=== PATIENT | female | born 1970 | race Caucasian/White ===

== ENCOUNTER 2016-04-23 08:37 | Emergency (ER) | payer SELFPAY ==
[~2016-04-23] VITALS: Ht 160 cm; Wt 58.1 kg
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
--- NOTE | 2016-04-23 09:25 | Diagnostic Imaging Report ---
INDICATION: Injury with pain. FINDINGS: There is no fracture, dislocation, or acute articular incongruity. The elbow and wrist reveal no dislocation. The ulnar styloid is intact, this reportedly the site of greatest pain. IMPRESSION: Unremarkable right forearm radiographs. Dictated by: Dictated on workstation # [id number]
--- NOTE | 2016-04-23 09:26 | Diagnostic Imaging Report ---
INDICATION: Injury with pain, symptoms greatest at the ulnar styloid. FINDINGS: The ulnar styloid is intact. The distal radius, ulna, carpus, metacarpals, and phalanges unremarkable. Arthritic changes greatest at the DIP of the fifth finger. No fracture. IMPRESSION: No acute-appearing abnormality. Dictated by: Dictated on workstation # [id number]
[2016-04-23] MEDS ORDERED: NAPR500T3 PO (09:35)
[2016-04-23 09:47] VITALS: BP 129/88
== END 2016-04-23 09:47 | disposition home or self-care (01) ==
LOC: ER 08:41
DX: S66.911A Strain of unspecified muscle, fascia and tendon at wrist and hand level, right hand, initial encounter (principal); W22.8XXA Striking against or struck by other objects, initial encounter; Y99.8 Other external cause status
CPT/HCPCS: 73090; 73130

== ENCOUNTER 2017-04-06 11:14 | Emergency (ER) | payer SELFPAY ==
[~2017-04-06] VITALS: Ht 162.6 cm; Wt 58.1 kg
[~2017-04-06 11:14] MED LIST: NAPR500T4 PO
--- OUTSIDE RECORDS SUMMARY | 2017-04-06 11:20 | XMS REPORT ---
Author Author JOHN TRAYLOR [facility] Address [address] [place] [address] Care Team Providers Care Associate Merchant Name Role Phone JOHN TRAYLOR Unavailable PROBLEMS Type Condition ICD9-CM Code FAC59-TC Code Onset Dates Condition Status SNOMED Code Problem Arthritis M19.90 Active 8279459 Problem Screening breast examination Z12.39 Active 079523999 Problem Screening examination for venereal disease V74.5 Active 597350154 Problem Routine gynecological examination Z01.419 Active 053728926 Problem High risk sexual behavior Z72.51 Active 640348564 ALLERGIES Substance Reaction Event Type Date Status Aspirin Unknown Drug Allergy Apr, Active SOCIAL HISTORY No smoking Hx information available PLAN OF CARE Activity Details Follow Up prn Reason: VITAL SIGNS Height 64 in 2016-05-01 Weight 132.8 lbs 2016-05-01 Temperature 98.3 degrees Fahrenheit 2016-05-01 Heart Rate 96 bpm 2016-05-01 Respiratory Rate 18 2016-05-01 BMI 22.79 kg/m2 2016-05-01 Blood pressure systolic 100 mmHg 2016-05-01 Blood pressure diastolic 70 mmHg 2016-05-01 MEDICATIONS Medication Instructions Dosage Frequency Start Date End Date Duration Status Naprosyn 500 MG Orally bid pc 1 Apr, Active RESULTS No Results PROCEDURES Procedure Date Ordered Related Diagnosis Body Site Office Visit, Est Pt., Level 2 May 01, 2016 IMMUNIZATIONS No Known Immunizations
[2017-04-06] MEDS ORDERED: HYDROcodone/APAP 5 MG/325 MG (LORTAB) TAB PO STA (11:29)
[2017-04-06] MEDS ORDERED: TETANUS,DIPTH,PERTUSS P/F (BOOSTRIX) 0.5 ML VIAL IM ONE (11:42)
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
--- NOTE | 2017-04-06 11:48 | Diagnostic Imaging Report ---
INDICATION: Forearm pain after injury. COMPARISON: None available. FINDINGS: There is an acute nondisplaced hairline fracture of the distal ulnar diaphysis. This is located approximately 3 cm from the ulnar styloid. No malalignment of the distal radioulnar joint or elbow. IMPRESSION: Acute nondisplaced hairline fracture of the distal ulnar diaphysis. Dictated by: Dictated on workstation # [id number]
[2017-04-06] MEDS ORDERED: HYDR-3812 PO (11:55)
[2017-04-06 12:05] VITALS: BP 116/93
== END 2017-04-06 12:05 | disposition home or self-care (01) ==
LOC: EDUNIT# 11:14 → ER 11:16
DX: S59.002A Unspecified physeal fracture of lower end of ulna, left arm, initial encounter for closed fracture (principal); F17.210 Nicotine dependence, cigarettes, uncomplicated; Z23 Encounter for immunization; W20.8XXA Other cause of strike by thrown, projected or falling object, initial encounter; W18.40XA Slipping, tripping and stumbling without falling, unspecified, initial encounter
CPT/HCPCS: 73090; 90715; 99284

== ENCOUNTER 2018-09-12 02:58 | Emergency (ER) | payer SELFPAY ==
[~2018-09-12] VITALS: Ht 162.6 cm; Wt 58.1 kg
[~2018-09-12 02:58] MED LIST changes: +ACHD5005 PO; +NAPR-915 PO; -NAPR500T4 PO
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
[2018-09-12] MEDS ORDERED: RX-TRAMADOL 50 MG (ULTRAM) TAB PPK#4 PO STA (04:13)
[2018-09-12 04:18] VITALS: BP 116/89
[2018-09-12 04:22] LABS: AMPHETAMINE SCREEN, URINE POSITIVE (NEGATIVE); BARBITURATE SCREEN URINE NEGATIVE (NEGATIVE); BENZODIAZEPINES SCREEN URINE NEGATIVE (NEGATIVE); CANNABINOID SCREEN, URINE POSITIVE (NEGATIVE); COCAINE SCREEN URINE NEGATIVE (NEGATIVE); METHADONE STAT NEGATIVE (NEGATIVE); METHAMPHETAMINE SCREEN URINE S NEGATIVE (NEGATIVE); OPIATE SCREEN URINE NEGATIVE (NEGATIVE); OXYCODONE STAT NEGATIVE (NEGATIVE); PROPOXYPHENE STAT NEGATIVE (NEGATIVE); TRICYCLIC ANTIDEPRESSANTS SCRE NEGATIVE (NEGATIVE)
[2018-09-12] MEDS ORDERED: TRAM-42 PO (04:23)
--- NOTE | 2018-09-12 05:56 | Diagnostic Imaging Report ---
INDICATION: Fall. Wrist pain. COMPARISON: 04/06/2017 FINDINGS: 3 radiographic views of the left hand were obtained. There is acute transverse oriented fracture involving the distal radius. There is no significant displacement of fracture fragments. There is no intra-articular extension. Note is also made of age-indeterminate ulnar styloid fracture. There is chronic appearing deformity of the distal ulna as well consistent with old healed fracture. Note is made, however but there is some irregular lucency associated with the deformity of the distal ulna suggestive of potential acute on chronic fracture. Note is also made of surrounding soft tissue swelling. Joint spaces are maintained. No unexpected radiopaque foreign bodies are seen. IMPRESSION: 1. Acute fracture of the distal left radius as described above. 2. Age-indeterminate ulnar styloid fracture. 3. Old fracture of the distal ulnar shaft. Again, there is some subtle lucency associated with the chronic appearing deformity suggestive of potential acute on chronic injury. If further evaluation is indicated, cross-sectional imaging is recommended. Dictated by: Dictated on workstation # [id number]
--- NOTE | 2018-09-12 05:59 | Diagnostic Imaging Report ---
INDICATION: Fall status post injury. COMPARISON: 04/06/2017 FINDINGS: 3 radiographic views of the left radius were obtained. There is acute transverse oriented right fracture involving the distal left radius in the region of the metadiaphyseal junction. There is no significant displacement of fracture fragments. There is no intra-articular extension. Note is also made of age-indeterminate ulnar styloid fracture. There is also gross chronic appearing deformity of the distal ulnar shaft. Note is made, however of subtle lucency within the chronic appearing deformity suggestive of potential acute on chronic injury. Joint spaces are maintained. No unexpected radiopaque foreign bodies are seen. IMPRESSION: 1. Acute fracture of the distal left radius as described above. 2. Age-indeterminate ulnar styloid fracture. 3. Chronic appearing deformity of distal ulna consistent with previous healed fracture. Again, however, there is some subtle lucency within this area suggestive of potential acute on chronic injury. If further evaluation is indicated, cross-sectional CT or MRI is recommended. Dictated by: Dictated on workstation # [id number]
== END 2018-09-12 04:25 | disposition home or self-care (01) ==
LOC: EDUNIT# 02:58 → ER 03:00
DX: S59.202A Unspecified physeal fracture of lower end of radius, left arm, initial encounter for closed fracture (principal); F10.129 Alcohol abuse with intoxication, unspecified; F19.10 Other psychoactive substance abuse, uncomplicated; F15.10 Other stimulant abuse, uncomplicated; F17.210 Nicotine dependence, cigarettes, uncomplicated; W18.30XA Fall on same level, unspecified, initial encounter
CPT/HCPCS: 73110; 73130; 80306; 84703

== ENCOUNTER 2018-12-25 23:07 | Emergency (ER) | payer SELFPAY ==
[~2018-12-25] VITALS: Ht 162.6 cm; Wt 58.1 kg
[~2018-12-25 23:07] MED LIST changes: +TRAM-42 PO
--- NOTE | 2018-12-25 23:07 | NUR ---
PATIENT ARRIVES TO ROOM VIA EMS FOR A DOG BITE. IV ESTABLISHED BY EMS, FLUIDS INFUSING PATIENT IS a&o X 4. 2315- CLEANING AND IRRIGATION OF WOUNDS DONE AT THIS TIME. RIGHT ANTERIOR AND POSTERIOR THIGH AND LEFT THUMB. COVERED WITH MOIST DRESSING AND VISCOUS LIDOCAINE 0045- MORE IRRIGATION AND CLEANING DONE WELL SOAKING LEFT THUMB IN CLEANING SOLUTION AND SALINE. DR VILLEGAS IN ROOM IRRIGATING AND ADMINISTERING RABIES VACCINATIONS AT SITES OF BITES. LEFT THUMB, AND ANTERIOR AND POSTERIOR RIGHT THIGH. 0050- DIPTI RIGHT ANTERIOR/INNER THIGH 6CM AND 8 DIPTI. 0055- DIPTI RIGHT POSTERIOR THIGH 4CM AND 5 DIPTI. 0100-BACTROBAN APPLIED TO WOUNDS AND COVERED WITH BESS AND WRAPPED IN KERLEX.
[2018-12-25] MEDS ORDERED: PIPERACILLIN SODIUM/TAZOBACTAM 4.5 GM in NS (IVPB) 100 ML IV ONE (23:15)
[2018-12-25] MEDS ORDERED: LACTATED RINGERS 1,000 ML IV ONE (23:17)
[2018-12-25] MEDS ORDERED: KETOROLAC 30 MG/ML VIAL IVP STA (23:17)
[2018-12-25 23:30] LABS: BASOPHILS % (AUTO) 0 % (0-10); EOSINOPHILS # (AUTO) 0.3 10^3/uL (0.0-0.3); EOSINOPHILS % (AUTO) 4 % (0-10); HEMATOCRIT 36 % (35-52); HEMOGLOBIN 12.3 G/DL (11.5-16.0); LYMPHOCYTES # (AUTO) 2.6 X 10^3 (1.0-4.0); LYMPHOCYTES % (AUTO) 31 % (12-44); MEAN CORPUSCULAR HEMOGLOBIN 31 PG (25-34); MEAN CORPUSCULAR HGB CONC 34 G/DL (32-36); MEAN CORPUSCULAR VOLUME 92 FL (80-99); MEAN PLATELET VOLUME 9.3 FL (7.4-10.4); MONOCYTES # (AUTO) 0.7 X 10^3 (0.0-1.0); MONOCYTES % (AUTO) 8 % (0-12); NEUTROPHILS # (AUTO) 4.8 X 10^3 (1.8-7.8); NEUTROPHILS % (AUTO) 57 % (42-75); PLATELET COUNT 301 10^3/uL (130-400); RED CELL DISTRIBUTION WIDTH 13.2 % (10.0-14.5); WHITE BLOOD COUNT 8.5 10^3/uL (4.3-11.0)
[2018-12-25] MEDS ORDERED: MUPIROCIN 2% OINT 22 GM (BACTROBAN) TUBE TOP SCH (23:30)
[2018-12-25] MEDS ORDERED: RABIES VACCINE HUMAN DIPL CELL 1 ML/2.5 UNITS SYR IM ONE (23:30)
[2018-12-25] MEDS ORDERED: LIDOCAINE/EPI 2% 1:100,00 (XYLOCAINE) 20 ML VIAL INJ ONE (23:30)
[2018-12-25] MEDS ORDERED: LIDOCAINE 2% VISCOUS 15 ML UDC MM ONE ×2 (23:30)
[2018-12-25] MEDS ORDERED: RABIES IMMUNE GLOBULIN 300 UNIT/ML 5 ML (HyperRAB) IM ONE (23:30)
[2018-12-25 23:49] LABS: ALANINE AMINOTRANSFERASE 15 U/L (0-55); ALBUMIN 3.8 GM/DL (3.2-4.5); ALKALINE PHOSPHATASE 96 U/L (40-136); BILIRUBIN,TOTAL 0.3 MG/DL (0.1-1.0); BUN/CREATININE RATIO 22; CALCIUM 8.9 MG/DL (8.5-10.1); CARBON DIOXIDE 22 MMOL/L (21-32); CHLORIDE 109 MMOL/L (98-107); CREATININE SERUM 0.68 MG/DL (0.60-1.30); GFR ESTIMATED > 60; GLUCOSE 115 MG/DL (70-105); POTASSIUM 3.8 MMOL/L (3.6-5.0); SODIUM 141 MMOL/L (135-145); TOTAL PROTEIN 6.6 GM/DL (6.4-8.2)
[2018-12-26] MEDS: LIDOCAINE/EPI 2% 1:100,00 (XYLOCAINE) 20 ML VIAL INJ ONE (00:01)
[2018-12-26 00:36] LABS: AMPHETAMINE SCREEN, URINE POSITIVE (NEGATIVE); BARBITURATE SCREEN URINE NEGATIVE (NEGATIVE); BENZODIAZEPINES SCREEN URINE NEGATIVE (NEGATIVE); CANNABINOID SCREEN, URINE POSITIVE (NEGATIVE); COCAINE SCREEN URINE NEGATIVE (NEGATIVE); METHADONE STAT NEGATIVE (NEGATIVE); METHAMPHETAMINE SCREEN URINE S POSITIVE (NEGATIVE); OPIATE SCREEN URINE NEGATIVE (NEGATIVE); OXYCODONE STAT NEGATIVE (NEGATIVE); PROPOXYPHENE STAT NEGATIVE (NEGATIVE); TRICYCLIC ANTIDEPRESSANTS SCRE NEGATIVE (NEGATIVE)
[2018-12-26] MEDS ORDERED: TRAM50TA2 PO (01:18)
[2018-12-26] MEDS ORDERED: AMOX-358 PO (01:18)
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
[2018-12-26] MEDS ORDERED: RX-TRAMADOL 50 MG (ULTRAM) TAB PPK#4 PO STA (01:23)
[2018-12-26 01:30] VITALS: BP 135/89
[2018-12-26] MEDS ORDERED: AUGMENTIN 875 MG TAB (AMOXICILLIN/CLAVULANATE) PO SCH (01:30)
--- NOTE | 2018-12-26 07:05 | Diagnostic Imaging Report ---
EXAM: FEMUR, RIGHT, 2 VIEWS INDICATION: Bug bite. COMPARISON: None. FINDINGS: No fracture or malalignment. No suspicious osteoblastic or lytic lesions. No radiopaque foreign bodies. Soft tissue gas about the distal right femoral metaphysis. IMPRESSION: Soft tissue wound along the distal right femoral metaphysis. No acute osseous findings. No radiopaque foreign bodies. Dictated by: Dictated on workstation # [id number]
--- NOTE | 2018-12-26 07:12 | Diagnostic Imaging Report ---
EXAM: FINGER(S) INDICATION: Dogbite. COMPARISON: Left hand radiographs 09/12/2018. 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 Chronic left distal radius fracture with dorsal angulation. Chronic left ulnar styloid fracture. IMPRESSION: 1. 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 No radiopaque foreign bodies. 2. Chronic fractures of the left radius and ulna. There is dorsal angulation of the left radius fracture. Dictated by: Dictated on workstation # [id number]
== END 2018-12-26 01:41 | disposition home or self-care (01) ==
LOC: EDUNIT# 23:07 → ER 23:08
DX: S62.522B Displaced fracture of distal phalanx of left thumb, initial encounter for open fracture (principal); S71.151A Open bite, right thigh, initial encounter; F15.99 Other stimulant use, unspecified with unspecified stimulant-induced disorder; F12.99 Cannabis use, unspecified with unspecified cannabis-induced disorder; F41.9 Anxiety disorder, unspecified; F17.210 Nicotine dependence, cigarettes, uncomplicated; Z90.89 Acquired absence of other organs; W54.0XXA Bitten by dog, initial encounter
CPT/HCPCS: 12032; 12042; 36415; 73140; 73552; 80053; 80306; 80320; 84703; 85025; 90375; 90675; 96365; 96372; 96375

== ENCOUNTER 2018-12-27 13:30 | Emergency (ER) | payer SELFPAY ==
[~2018-12-27] VITALS: Ht 162.6 cm; Wt 56.7 kg
[~2018-12-27 13:30] MED LIST changes: +AMOX-358 PO; +TRAM50TA2 PO
[2018-12-27] MEDS ORDERED: PIPERACILLIN SODIUM/TAZOBACTAM 4.5 GM in NS (IVPB) 100 ML IV ONE (14:00)
[2018-12-27] MEDS ORDERED: VANCOMYCIN INJECTION 1,000 MG in NS (IVPB) 250 ML IV ONE (14:00)
[2018-12-27 14:23] LABS: BASOPHILS % (AUTO) 0 % (0-10); EOSINOPHILS # (AUTO) 0.1 10^3/uL (0.0-0.3); EOSINOPHILS % (AUTO) 1 % (0-10); HEMATOCRIT 35 % (35-52); HEMOGLOBIN 11.7 G/DL (11.5-16.0); LYMPHOCYTES # (AUTO) 1.3 X 10^3 (1.0-4.0); LYMPHOCYTES % (AUTO) 14 % (12-44); MEAN CORPUSCULAR HEMOGLOBIN 32 PG (25-34); MEAN CORPUSCULAR HGB CONC 34 G/DL (32-36); MEAN CORPUSCULAR VOLUME 94 FL (80-99); MEAN PLATELET VOLUME 9.5 FL (7.4-10.4); MONOCYTES # (AUTO) 0.7 X 10^3 (0.0-1.0); MONOCYTES % (AUTO) 8 % (0-12); NEUTROPHILS # (AUTO) 7.3 X 10^3 (1.8-7.8); NEUTROPHILS % (AUTO) 77 % (42-75); PLATELET COUNT 229 10^3/uL (130-400); RED CELL DISTRIBUTION WIDTH 13.1 % (10.0-14.5); WHITE BLOOD COUNT 9.4 10^3/uL (4.3-11.0)
[2018-12-27 14:36] LABS: ALANINE AMINOTRANSFERASE 16 U/L (0-55); ALBUMIN 3.6 GM/DL (3.2-4.5); ALKALINE PHOSPHATASE 74 U/L (40-136); BILIRUBIN,TOTAL 0.5 MG/DL (0.1-1.0); BUN/CREATININE RATIO 13; CALCIUM 8.5 MG/DL (8.5-10.1); CARBON DIOXIDE 25 MMOL/L (21-32); CHLORIDE 104 MMOL/L (98-107); CREATININE SERUM 0.68 MG/DL (0.60-1.30); GFR ESTIMATED > 60; GLUCOSE 86 MG/DL (70-105); POTASSIUM 3.5 MMOL/L (3.6-5.0); SODIUM 140 MMOL/L (135-145); TOTAL PROTEIN 6.4 GM/DL (6.4-8.2)
[2018-12-27 15:27] LABS: AMPHETAMINE SCREEN, URINE POSITIVE (NEGATIVE); BARBITURATE SCREEN URINE NEGATIVE (NEGATIVE); BENZODIAZEPINES SCREEN URINE NEGATIVE (NEGATIVE); CANNABINOID SCREEN, URINE POSITIVE (NEGATIVE); COCAINE SCREEN URINE NEGATIVE (NEGATIVE); METHADONE STAT NEGATIVE (NEGATIVE); METHAMPHETAMINE SCREEN URINE S POSITIVE (NEGATIVE); OPIATE SCREEN URINE POSITIVE (NEGATIVE); OXYCODONE STAT NEGATIVE (NEGATIVE); PROPOXYPHENE STAT NEGATIVE (NEGATIVE); TRICYCLIC ANTIDEPRESSANTS SCRE NEGATIVE (NEGATIVE)
--- NOTE | 2018-12-27 15:55 | NUR ---
CONSENT FORM FOR TRANSFER SIGNED
--- NOTE | 2018-12-27 16:15 | NUR ---
REPORT CALLED TO JACKIE CALABRESE AT [facility] TO GO TO ROOM 389
--- NOTE | 2018-12-27 16:23 | NUR ---
DRESSING APPLIED TO L THUMB
[2018-12-27 17:00] VITALS: BP 134/86
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
== END 2018-12-27 16:59 ==
LOC: EDUNIT# 13:30 → ER 13:31
DX: S68.012A Complete traumatic metacarpophalangeal amputation of left thumb, initial encounter (principal); S71.151A Open bite, right thigh, initial encounter; L08.9 Local infection of the skin and subcutaneous tissue, unspecified; F12.10 Cannabis abuse, uncomplicated; F17.210 Nicotine dependence, cigarettes, uncomplicated; Z90.89 Acquired absence of other organs; Z91.19 Patient's noncompliance with other medical treatment and regimen; W54.0XXA Bitten by dog, initial encounter
CPT/HCPCS: 36415; 80053; 80306; 83605; 85025; 87040; 87070; 87077; 87205; 96365; 96367

== ENCOUNTER 2019-09-05 13:16 | Emergency (ER) | payer SELFPAY ==
[~2019-09-05] VITALS: Ht 162.5 cm; Wt 58.9 kg
[~2019-09-05 13:16] MED LIST changes: -TRAM50TA2 PO; +TRM50T PO
--- NOTE | 2019-09-05 13:25 | ED Upper Extremity ---
General Chief Complaint: Upper Extremity Stated Complaint: R WRIST PAIN Source: patient Exam Limitations: no limitations History of Present Illness Date Seen by Provider: September 05, 2019 Time Seen by Provider: 13:24 Initial Comments To ER with reports of a fall and has subsequently developed pain to the ulnar side of the right wrist after attempting to catch herself as morning. Onset: just prior to arrival Severity: moderate Pain/Injury Location: right wrist Method of Injury: fell Modifying Factors: Worse With Movement Allergies and Home Medications Allergies Coded Allergies: No Known Drug Allergies (Unverified , 04/23/16) Home Medications No Active Prescriptions or Reported Meds Patient Home Medication List Home Medication List Reviewed: Yes Review of Systems Constitutional: see HPI EENTM: see HPI Respiratory: no symptoms reported Cardiovascular: no symptoms reported Genitourinary: no symptoms reported Musculoskeletal: see HPI Skin: no symptoms reported Psychiatric/Neurological: No Symptoms Reported Past Dlaywxa-Ghlmzs-Ogwyyu Hx Patient Social History Alcohol Use: Occasionally Uses Recreational Drug Use: No Drug of Choice: + IV METH USE, THC USE Smoking Status: Current Everyday Smoker Type Used: Cigarettes 2nd Hand Smoke Exposure: Yes Recent Foreign Travel: No Contact w/Someone Who Travel: No Recent Hopitalizations: No Immunizations Up To Date Tetanus Booster (TDap): Less than 5yrs Seasonal Allergies Seasonal Allergies: No Past Medical History Surgeries: Yes Adenoidectomy, Tonsillectomy Respiratory: No Cardiac: No Neurological: No Reproductive Disorders: No Genitourinary: No Gastrointestinal: No Musculoskeletal: Yes (LEFT ULNA FRACTURE) Fractures Endocrine: No HEENT: No Cancer: No Psychosocial: No Integumentary: No Blood Disorders: No Physical Exam Vital Signs Capillary Refill : Height, Weight, BMI Height: 5'4.00" Weight: 125lbs. oz. [id number]; BMI Method:Stated General Appearance: WD/WN, no apparent distress Neck: non-tender, full range of motion Respiratory: no respiratory distress, no accessory muscle use Elbow/Forearm: normal inspection, non-tender Wrist: Yes normal inspection, Yes non-tender Hand: normal inspection, Right, limited ROM, soft tissue tenderness Neurologic/Psychiatric: alert, normal mood/affect, oriented x 3 Skin: normal color, warm/dry Progress/Results/Core Measures Results/Orders My Orders Orders - MINOR AZAR APRN Wrist, Right, 3 Views Or More (09/05/19 13:22) Departure Impression Primary Impression: Strain of right wrist Qualified Codes: S66.911A - Strain of unspecified muscle, fascia and tendon at wrist and hand level, right hand, initial encounter Disposition: 01 HOME, SELF-CARE Condition: Stable Departure-Patient Inst. Decision time for Depature: 13:33 Referrals: NO,LOCAL PHYSICIAN (PCP/Family) Primary Care Physician Patient Instructions: Wrist Sprain (DC) Add. Discharge Instructions: Wear the wrist splint as needed for comfort. You can take it off when you no longer have pain. Tylenol and ibuprofen for pain control. All discharge instructions reviewed with patient and/or family. Voiced understanding. Scripts No Active Prescriptions or Reported Meds MINOR AZAR APRN September 05, 2019 13:25
[2019-09-05 13:45] VITALS: BP 124/82
--- NOTE | 2019-09-05 14:04 | Diagnostic Imaging Report ---
Indication: Right wrist pain. Comparison: None. Findings: 3 views of the right wrist demonstrate no fracture, dislocation. Articular surfaces normal. There is no radial opaque foreign body or bony erosion. Impression: No fracture or dislocation. Dictated by: Dictated on workstation # [id number]
== END 2019-09-05 13:48 | disposition home or self-care (01) ==
LOC: EDUNIT# 13:16 → ER 13:17
DX: S66.911A Strain of unspecified muscle, fascia and tendon at wrist and hand level, right hand, initial encounter (principal); F17.210 Nicotine dependence, cigarettes, uncomplicated; W19.XXXA Unspecified fall, initial encounter
CPT/HCPCS: 73110